=== PATIENT | female | born 1985 | race American Indian/Alaskan Native ===

== ENCOUNTER 2017-04-07 12:28 | Emergency (ER) | payer MEDICAID ==
[2017-04-07 12:58] VITALS: BP 133/77
[2017-04-07] MEDS ORDERED: ZOFRAN ODT PO ONE (13:02)
[2017-04-07] MEDS ORDERED: NORCO 10/325 PO ONE (13:03)
--- NOTE | 2017-04-07 13:04 | Emergency Department Report ---
Chief Complaint: Shoulder Injury Stated Complaint: BROKEN SHOULDER - HPI History of Present Illness: 31-year-old female presents with complaint of right shoulder elbow and upper arm pain status post mechanical fall. Patient in severe pain. Awake alert and oriented 3. - Exam Vital Signs: Vital Signs 04/07/17 12:51 Temperature 98.2 F Pulse Rate 57 L Blood Pressure 133/77 O2 Sat by Pulse 100 Oximetry Physical Exam: Patient has difficulty ranging right upper extremity secondary to pain status post fall MSE screening note: Focused history and physical exam performed. Due to findings the following was ordered: Screening Assessment/Plan/Differential Dx: Possible fracture or dislocation right upper extremity 1- This initial assessment/diagnostic orders/clinical plan/ treatment(s) is/are subject to change based on pt's health status, clinical progression and re- assessment by fellow clinical providers in the ED. Further treatment and workup at subsequent clinical provers discretion. Patient/guardians urged not to elope from ED as their condition may be serious if not clinically assessed and managed. 2-x-rays from elbow to shoulder 3-Roseline for pain ED Disposition for MSE Condition: Stable
[2017-04-07] MEDS ORDERED: DILAUDID IM ONE (13:58)
[2017-04-07] MEDS ORDERED: ZOFRAN IM ONE (13:58)
[2017-04-07] MEDS ORDERED: TORADOL IM ONE (14:00)
--- NOTE | 2017-04-07 14:11 | Emergency Department Report ---
HPI - General Chief Complaint: Shoulder Injury Time Seen by Provider: 04/07/17 13:50 - HPI HPI: Shayne Spence The patient is a 31-year-old female presenting with a chief complaint of left shoulder pain. The patient states she went out to look at the ice and accidentally slipped and fell backwards. The patient states she attempted to break her fall by reaching back with left arm but landed on her shoulder. Patient complains of pain in the left shoulder and gives it a score of_9-10/10. Patient denies loss of consciousness Location: Left shoulder Duration: Occurred today at approximately 11:00 Quality: Pain Severity: 9-10/10 Modifying factors: [see above] Context: [see above] Mode of transportation: [not driving] ED Past Medical Hx - Past Medical History Additional medical history: hypothyroidism. - Surgical History Past Surgical History?: No - Family History Family history: no significant - Social History Smoking Status: Never Smoker Substance Use Type: Alcohol (rarely) - Medications Home Medications: Home Medications Medication Instructions Recorded Confirmed Last Taken Type Cyclobenzaprine [Flexeril] 10 mg PO TID PRN #20 tablet 04/07/17 Unknown Rx Oxycodone HCl/Acetaminophen 1 each PO Q6HR PRN #30 tablet 04/07/17 Unknown Rx [Percocet 10/325 mg] ED Review of Systems ROS: Stated complaint: BROKEN SHOULDER Other details as noted in HPI Musculoskeletal: arthralgia, myalgia Physical Exam - Physical Exam Vital Signs: Vital Signs 04/07/17 12:51 Temperature 98.2 F Pulse Rate 57 L Blood Pressure 133/77 O2 Sat by Pulse 100 Oximetry Physical Exam: GENERAL: The patient is well-developed well-nourished female lying on stretcher supporting left upper extremity with her right hand. [] HEENT: Normocephalic. Atraumatic. Extraocular motions are intact. Patient has moist mucous membranes. NECK: Supple. Trachea midline CHEST/LUNGS: There is no respiratory distress noted. HEART/CARDIOVASCULAR: Regular. There is no tachycardia. 2+ left radial pulse SKIN: There is no diaphoresis. NEURO: The patient is awake, alert, and oriented. The patient is cooperative. The patient has normal speech MUSCULOSKELETAL: There is limited range of motion of the left shoulder secondary to pain ED Course Vital Signs 04/07/17 12:51 Temperature 98.2 F Pulse Rate 57 L Blood Pressure 133/77 O2 Sat by Pulse 100 Oximetry ED Medical Decision Making - Radiology Data Radiology results: image reviewed (left shoulder x-ray, left humerus x-ray, left elbow x-ray) Left shoulder x-ray-acute humeral neck fracture Left elbow x-ray-no fracture seen Left humerus x-ray-acute humeral neck fracture - Differential Diagnosis shoulder dislocation, humeral fracture Critical care attestation.: If time is entered above; I have spent that time in minutes in the direct care of this critically ill patient, excluding procedure time. ED Disposition Clinical Impression: Fracture of neck of left humerus Disposition: - TO HOME OR SELFCARE Is pt being admited?: No Does the pt Need Aspirin: No Condition: Stable Instructions: Arm Fracture in Adults (ED) Additional Instructions: Return to the emergency department immediately should you develop worsening symptoms, fever, inability to tolerate food or liquid or any other concerns. Prescriptions: Cyclobenzaprine [Flexeril] 10 mg PO TID PRN #20 tablet PRN Reason: Muscle Spasm Oxycodone HCl/Acetaminophen [Percocet 10/325 mg] 1 each PO Q6HR PRN #30 tablet PRN Reason: Pain Referrals: SÁNCHEZ DE JESUS MD [Staff Physician] - [facility] (Dr. De Jesus is an orthopedic surgeon. Please follow up with him for further evaluation) Time of Disposition: 14:21
--- NOTE | 2017-04-07 14:20 | XRay Report ---
LEFT SHOULDER RADIOGRAPHS INDICATION: Pain. COMPARISON: None similar at this institution. FINDINGS: Frontal and attempted Y views of the left shoulder somewhat limited due to patient positioning/extreme pain and demonstrate possibly comminuted humeral neck fracture without significant displacement, though slight inferior subluxation of the humeral head relative to the glenoid possible versus positional. Some overlying soft tissue swelling may also be present. Intact acromioclavicular joint. Normal imaged left lung and ribs. Some extrinsic artifacts. CONCLUSION: Left humeral neck acute fracture, suspected comminuted, as described. Thank you for the opportunity to participate in this patient's care.
--- NOTE | 2017-04-07 14:23 | XRay Report ---
LEFT HUMERUS RADIOGRAPHS INDICATION: Pain. COMPARISON: None similar. FINDINGS: Attempted AP and lateral views limited due to patient pain/discomfort, though just image a comminuted left humeral neck fracture with humeral head partly collimated. Few extrinsic artifacts. Elbow joint appears grossly intact. CONCLUSION: Left humeral neck acute comminuted fracture, as described. Thank you for the opportunity to participate in this patient's care.
--- NOTE | 2017-04-07 14:26 | XRay Report ---
LEFT ELBOW RADIOGRAPHS INDICATION: Fell, hit ground. Evaluate for fracture. COMPARISON: None similar. FINDINGS: AP and lateral views of the left elbow technically limited/suboptimally positioned. No gross abnormality though appreciated. CONCLUSION: No gross left elbow radiographic abnormality on this limited exam. Thank you for the opportunity to participate in this patient's care.
== END 2017-04-07 15:13 | disposition home or self-care (01) ==
LOC: ED 12:28
DX: S42.295A Other nondisplaced fracture of upper end of left humerus, initial encounter for closed fracture (principal); E03.9 Hypothyroidism, unspecified; W00.2XXA Other fall from one level to another due to ice and snow, initial encounter; Y93.89 Activity, other specified; Y92.89 Other specified places as the place of occurrence of the external cause; Y99.8 Other external cause status
CPT/HCPCS: 29105; 73030; 73060; 73080; 96372; 99283; J1170; J1885; J2405; Q0162

== ENCOUNTER 2017-04-13 08:33 | Outpatient (CLI) | payer MEDICAID ==
--- NOTE | 2017-04-13 09:43 | Cat Scan Report ---
CT UPPER EXTREMITY LEFT WITHOUT CONTRAST History: Pain in left shoulder. Technique: Helical CT with sagittal and coronal reformatted images. Findings: Compared to the left shoulder films dated 04/07/17. A mildly comminuted and displaced left humeral neck fracture is again identified. Anterior displacement of the distal fragment at the fracture site measures up to 1.7 cm. There is 30-40 degrees posterior angulation at the fracture site. No evidence for calcified callus. The humeral head remains adequately seated within the glenoid of the left scapula. No intra-articular fracture lines are identified. The scapula and left clavicle are intact. No joint pathology. There is diffuse soft tissue swelling. Impression: Comminuted, displaced left humeral neck fracture.
== END 2017-04-13 08:34 | disposition home or self-care (01) ==
LOC: CT 08:33
PROVIDERS: ATTEND Orthopaedic Surgery
DX: S42.292D Other displaced fracture of upper end of left humerus, subsequent encounter for fracture with routine healing (principal); X58.XXXD Exposure to other specified factors, subsequent encounter

== ENCOUNTER 2017-04-15 10:00 | Day surgery (SDC) | payer MEDICAID ==
[~2017-04-15 10:00] MED LIST: ANCEF/STERILE WATER 2 GM/20 ML IV NR
[2017-04-15] MEDS ORDERED: SUBLIMAZE IV NR (12:01)
[2017-04-15] MEDS ORDERED: ZOFRAN IV PRN (12:02)
[2017-04-15] MEDS ORDERED: DILAUDID IV PRN (12:02)
--- NOTE | 2017-04-15 12:04 | Anesthesia Day of Surgery ---
Anesthesia Day of Surgery - Day of Surgery Patient Examined: Yes Patient H&P Reviewed: Yes Patient is NPO: Yes
--- NOTE | 2017-04-15 12:05 | Anesthesia Consultation ---
Anesthesia Consult and Med Hx Date of service: 04/15/17 - Airway Anesthetic Teeth Evaluation: Good ROM Head & Neck: Adequate Mental/Hyoid Distance: Adequate Mallampati Class: Class II Intubation Access Assessment: Probably Good - Pulmonary Exam CTA: Yes - Cardiac Exam Cardiac Exam: RRR - Pre-Operative Health Status ASA Pre-Surgery Classification: ASA3 Proposed Anesthetic Plan: General Nerve Block: IS - Pulmonary Hx Smoking: No Hx Sleep Apnea: No (THERESE PRE SCREEN LOW RISK) - Cardiovascular System Hx Hypertension: No Hx Heart Murmur: Yes ( CHILD ONLY) - Central Nervous System Hx Psychiatric Problems: Yes (Anxiety, depression) - Endocrine Hx Thyroid Disease: Yes Hx Hypothyroidism: Yes (ON MEDS) - Other Systems Hx Substance Use: Yes (MARIJUANA MONTHLY) Hx Cancer: No - Additional Comments Anesthesia Medical History Comments: migraines, GERD
[2017-04-15] MEDS ORDERED: MARCAINE 0.5% 30 ML INFILTRATI ONE (12:06)
[2017-04-15] MEDS ORDERED: DIPRIVAN 10 MG/ML IV ONE (12:12)
[2017-04-15] MEDS ORDERED: XYLOCAINE MPF 2% ONE (12:12)
[2017-04-15] MEDS ORDERED: PEPCID IV NR (12:30)
[2017-04-15] MEDS ORDERED: VERSED IV NR (13:00)
[2017-04-15] MEDS ORDERED: LACTATED RINGERS 1,000 ML IV SCH (13:00)
[2017-04-15] MEDS ORDERED: DECADRON ONE (13:47)
[2017-04-15] MEDS ORDERED: NACL 0.9% IR ONE (14:10)
[2017-04-15] MEDS ORDERED: NACL 0.9% 1000 ML 1,000 ML ONE (14:57)
[2017-04-15] MEDS ORDERED: ZOFRAN ONE ×2 (15:11→15:49)
--- NOTE | 2017-04-15 15:41 | Procedure Note ---
Date of procedure: 04/15/17 Pre-op diagnosis: displaced left 2-part proximal humerus fracture Post-op diagnosis: same Procedure: Closed reduction and insertion of intramedullary nail left proximal humerus Procedure The patient was brought to or after being given a scalene nerve block in preop holding for postop pain management. She was placed on the OR table supine and was placed in the beachchair position. The left upper extremity was then prepped and draped in the usual sterile manner, a timeout procedure was done to identify the patient and the correct operative site. An incision was made over the greater tuberosity and was taken down sharply through skin and subcutaneous the deltoid was split along with the rotator cuff tendon A threaded guidewire was inserted through a proximal fragment across the fracture site into the distal humeral canal, The canal was reamed to a 11.5 mm diameter this was followed by insertion of the short humeral nail under C-arm fluoroscopy. Using the targeting device the proximal spiral blade was inserted into the humeral head and this was followed by gentle traction on the distal fragment along with insertion of 2 distal interlocking screws. Again AP and lateral views were obtained and showed good reduction of the fracture and placement of hardware. A third screw was inserted freehand through the distal fragment into the humeral head fragment again C-arm fluoroscopy was used to evaluate positioning. Following this the wound was copiously irrigated with saline solution followed by closure of the wound. Postop dressings were applied as well as an arm sling, she tolerated the procedure without complications and she was sent to postanesthesia recovery in stable condition Anesthesia: GETA Surgeon: SÁNCHEZ DE JESUS (Omari Ruff 1st assignment desk assistant) Estimated blood loss: 50-100ml Pathology: none Condition: stable Disposition: PACU
[2017-04-15] MEDS ORDERED: ZOFRAN IV ONE (15:50)
[2017-04-15 17:53] VITALS: BP 110/65
--- NOTE | 2017-04-15 22:35 | XRay Report ---
FINAL REPORT PROCEDURE: Left shoulder. TECHNIQUE: Portable two views. HISTORY: Proximal humerus fracture. COMPARISON: No prior studies are available for comparison. FINDINGS: Internal fixation hardware has been placed. The humeral neck fracture appears to be adequately reduced. The glenohumeral joint appears normal. IMPRESSION: Open reduction and internal fixation of the proximal humerus fracture.
== END 2017-04-15 10:01 | disposition home or self-care (01) ==
LOC: OR 10:00
PROVIDERS: ATTEND Orthopaedic Surgery
DX: S42.202A Unspecified fracture of upper end of left humerus, initial encounter for closed fracture (principal); K21.9 Gastro-esophageal reflux disease without esophagitis; E03.9 Hypothyroidism, unspecified; G43.909 Migraine, unspecified, not intractable, without status migrainosus; F41.9 Anxiety disorder, unspecified; F32.9 Major depressive disorder, single episode, unspecified; W01.0XXA Fall on same level from slipping, tripping and stumbling without subsequent striking against object, initial encounter; Y93.89 Activity, other specified; Y92.89 Other specified places as the place of occurrence of the external cause; Y99.8 Other external cause status
CPT/HCPCS: 23615; 73030; 81025; C1713; C1769; J0690; J1100; J2250; J2405; J2704; J3010; J7030; J7120

== ENCOUNTER 2017-09-21 10:48 | Outpatient (CLI) | payer MEDICAID ==
--- NOTE | 2017-09-21 11:29 | XRay Report ---
LEFT SHOULDER, 3 views: History: Pain in left shoulder. Compared to the operative films dated 04/15/17. Internal fixation of the left humeral neck is unchanged in position and alignment. The fracture is remodeling. There is a linear metallic density measuring 5.5 cm in the posterior soft tissues. This surgical pin has migrated since the operative films. Please correlate with the images. IMPRESSION: Remodeling left humeral neck fracture. There is a metallic pin in the posterior soft tissues which has migrated since the operative films dated 04/15/17.
== END 2017-09-21 10:49 | disposition home or self-care (01) ==
LOC: XRAY 10:48
PROVIDERS: ATTEND Orthopaedic Surgery
DX: M25.512 Pain in left shoulder (principal)

== ENCOUNTER 2017-10-14 11:26 | Day surgery (SDC) | payer MEDICAID ==
[2017-10-14 13:21] VITALS: BP 114/67
[2017-10-15] MEDS ORDERED: ANCEF/STERILE WATER 2 GM/20 ML IV NR (00:01)
[2017-10-15] MEDS ORDERED: XYLOCAINE MPF 2% ONE (14:14)
[2017-10-15] MEDS ORDERED: DIPRIVAN 10 MG/ML IV ONE (14:14)
[2017-10-15] MEDS ORDERED: ROBINUL ONE (14:38)
[2017-10-15] MEDS ORDERED: DILAUDID ONE (14:43)
[2017-10-15] MEDS ORDERED: ZOFRAN ONE (16:12)
[2017-10-15] MEDS ORDERED: NACL 0.9% 1000 ML 1,000 ML ONE (16:16)
== END 2017-10-14 11:27 | disposition home or self-care (01) ==
LOC: OR 11:26
PROVIDERS: ATTEND Orthopaedic Surgery
DX: M25.512 Pain in left shoulder (principal); E03.9 Hypothyroidism, unspecified; F32.9 Major depressive disorder, single episode, unspecified; F41.9 Anxiety disorder, unspecified; M19.90 Unspecified osteoarthritis, unspecified site; Z98.890 Other specified postprocedural states; Z53.8 Procedure and treatment not carried out for other reasons
CPT/HCPCS: 81025; J1170; J2405; J2704; J7030

== ENCOUNTER 2017-10-15 10:12 | Day surgery (SDC) | payer MEDICAID ==
[2017-10-15] MEDS ORDERED: NACL BACTERIOSTATIC INFILTRATI ONE (10:55)
[2017-10-15] MEDS ORDERED: VERSED IV NR (11:00)
[2017-10-15] MEDS ORDERED: ANCEF/STERILE WATER 2 GM/20 ML IV NR (11:00)
[2017-10-15] MEDS ORDERED: LACTATED RINGERS 1,000 ML IV SCH (11:00)
--- NOTE | 2017-10-15 11:07 | Anesthesia Day of Surgery ---
Anesthesia Day of Surgery - Day of Surgery Patient Examined: Yes Patient H&P Reviewed: Yes Patient is NPO: Yes
[2017-10-15] MEDS ORDERED: ZOFRAN IV PRN (11:08)
[2017-10-15] MEDS ORDERED: DEMEROL IV PRN (11:08)
[2017-10-15] MEDS ORDERED: DILAUDID IV PRN (11:08)
[2017-10-15] MEDS ORDERED: TORADOL IV PRN (11:08)
--- NOTE | 2017-10-15 11:08 | Anesthesia Consultation ---
Anesthesia Consult and Med Hx Date of service: 10/15/17 - Airway Anesthetic Teeth Evaluation: Good ROM Head & Neck: Adequate Mental/Hyoid Distance: Adequate Mallampati Class: Class II Intubation Access Assessment: Probably Good - Pulmonary Exam CTA: Yes - Cardiac Exam Cardiac Exam: RRR - Pre-Operative Health Status ASA Pre-Surgery Classification: ASA3 Proposed Anesthetic Plan: General Nerve Block: IS (Ga with LMA ok) - Pulmonary Hx Smoking: No Hx Sleep Apnea: No (THERESE PRE SCREEN LOW RISK) - Cardiovascular System Hx Hypertension: No Hx Heart Murmur: Yes ( CHILD ONLY) - Endocrine Hx Thyroid Disease: Yes Hx Hypothyroidism: Yes (ON MEDS) - Other Systems Hx Substance Use: Yes (MARIJUANA MONTHLY) Hx Cancer: No
[2017-10-15] MEDS ORDERED: MARCAINE 0.5% INFILTRATI ONE ×2 (14:51→15:09)
[2017-10-15] MEDS ORDERED: MORPHINE ONE (14:53)
[2017-10-15] MEDS ORDERED: NACL 0.9% 100 ML ONE (14:54)
[2017-10-15] MEDS ORDERED: NACL 0.9% IR ONE (15:08)
[2017-10-15] MEDS ORDERED: TORADOL IV ONE (15:09)
[2017-10-15] MEDS ORDERED: MORPHINE IM ONE (15:10)
[2017-10-15] MEDS ORDERED: NACL 0.9% IV ONE (15:10)
[2017-10-15] MEDS: DILAUDID IV PRN ×4 (17:10→17:40)
--- NOTE | 2017-10-15 17:14 | Procedure Note ---
Date of procedure: 10/15/17 Pre-op diagnosis: hardware irritation left shoulder Post-op diagnosis: same Procedure: Removal of hardware left shoulder status post intramedullary nail left proximal humerus Procedure The patient was brought to the OR placed in the or table in supine position following induction and intubation by anesthesia the patient was placed in the beachchair position The left shoulder and arm were prepped and draped in the usual sterile manner. A timeout procedure was done to identify the patient and the correct operative site. Using the previous incision over the lateral border of the shoulder incision was taken down sharply through skin and subcutaneous C-arm was brought in the proximal aspect of the intramedullary nail was visualized next the inset incision was carried deep through the rotator cuff tendon with exposure of the proximal aspect of the IM nail the intramedullary cap screw exposing the internal portion of IM nail following this extraction device was then applied following this the helical blade was localized via C-arm and using a small K wire placed through the helical blade this this structure was removed as well attention was then turned to the 2 distal locking screws and using the previous incision and C-arm visualization the 2 distal screws were removed The intramedullary nail was extracted without any complications. Finally the K wire seen in the patient's soft tissue was removed using a secondary incision distally The wounds were all copiously irrigated, closed in a standard routine fashion routine prep and routine dressings were used the patient was then extubated and was taken to postanesthesia recovery in a stable condition. Anesthesia: GETA Surgeon: SÁNCHEZ DE JESUS Estimated blood loss: 50-100ml Pathology: none Condition: stable Disposition: PACU
[2017-10-15] MEDS ORDERED: NORCO 7.5/325 PO PRN (17:49)
[2017-10-15 18:53] VITALS: BP 110/62
--- NOTE | 2017-10-18 07:24 | XRay Report ---
LEFT SHOULDER, ONE VIEW History: Painful hardware removal. Findings: 2 fluoroscopic images of the left shoulder region and proximal left humerus were saved during surgery by Dr. Adam. The images demonstrate removal of an intramedullary pk and 3 screws from the proximal left humerus since 09/21/17. A linear metallic object in the posterior soft tissues has also been removed. A single orthopedic screw transverses the left humeral neck region. Please correlate with the procedural report as needed. Impression: Hardware removal from the proximal left humerus as outlined above.
== END 2017-10-15 19:30 | disposition home or self-care (01) ==
LOC: OR 10:12
PROVIDERS: ATTEND Orthopaedic Surgery
DX: T84.84XA Pain due to internal orthopedic prosthetic devices, implants and grafts, initial encounter (principal); E03.9 Hypothyroidism, unspecified; F32.9 Major depressive disorder, single episode, unspecified; F41.9 Anxiety disorder, unspecified; E66.9 Obesity, unspecified; Z68.36 Body mass index [BMI] 36.0-36.9, adult; Y83.1 Surgical operation with implant of artificial internal device as the cause of abnormal reaction of the patient, or of later complication, without mention of misadventure at the time of the procedure
CPT/HCPCS: 20670; 73020; J0690; J1170; J1885; J2270; J2405; J7120

== ENCOUNTER 2018-08-23 12:37 | Outpatient (CLI) | payer MEDICAID ==
--- NOTE | 2018-08-23 14:03 | XRay Report ---
LEFT ANKLE, 3 views: History: left ankle pain. No comparison. There is borderline bone mineralization. There appears to be a remodeling fracture in the distal left fibula 3-4 cm proximal to the ankle joint. No acute fracture is appreciated. There are moderate degenerative changes at the ankle joint. No osteochondral defect. Moderate plantar spur. Mild diffuse soft tissue swelling. IMPRESSION: Remodeling distal fibular fracture. Osteoarthritis. Plantar spur.
== END 2018-08-23 12:38 | disposition home or self-care (01) ==
LOC: XRAY 12:37
PROVIDERS: ATTEND Orthopaedic Surgery
DX: S82.402A Unspecified fracture of shaft of left fibula, initial encounter for closed fracture (principal); M19.072 Primary osteoarthritis, left ankle and foot; E03.9 Hypothyroidism, unspecified; X58.XXXA Exposure to other specified factors, initial encounter; Y93.89 Activity, other specified; Y92.89 Other specified places as the place of occurrence of the external cause; Y99.8 Other external cause status

== ENCOUNTER 2018-11-20 14:30 | Emergency (ER) | payer MEDICAID ==
--- NOTE | 2018-11-20 16:27 | XRay Report ---
RIGHT ANKLE 3 VIEWS INDICATION / CLINICAL INFORMATION: pain and swelling r/t injury. COMPARISON: None available. FINDINGS: No significant skeletal abnormality. Signer Name: Buck Roper MD FACWillem Signed: 11/20/2018 4:23 PM Workstation Name: [id number]
--- NOTE | 2018-11-20 18:08 | Emergency Department Report ---
ED Lower Extremity HPI - General Chief Complaint: Extremity Injury, Lower Stated Complaint: RT ANKLE INJURY Time Seen by Provider: 11/20/18 18:04 Source: patient, family Mode of arrival: Wheelchair Limitations: No Limitations - History of Present Illness Initial Comments: 32-year-old -[place] female presents to the emergency room for right ankle pain after twisting her ankle approximately 1:15 today. Patient reports she was carrying a box when she stepped down and eating with her right foot she rolled inward with her foot and heard some sounds. Patient did take ibuprofen 800 mg about 2 PM. He says states her pain is still a 9 out of 10. He has a past medical history of hypothyroidism and is currently taking levothyroxine 175 g. Patient has an allergy to corn. MD Complaint: ankle injury -: This afternoon Time: 13:15 Injury: Ankle: Right (twisted ) Type of Injury: inversion Place: home Severity scale (0 -10): 9 Improves With: immobilization Worsens With: weight bearing, palpation Context: walking Associated Symptoms: snap/pop sensation, swelling, numbness, tingling, unable to bear weight Treatments Prior to Arrival: NSAIDS - Related Data Home Medications Medication Instructions Recorded Confirmed Last Taken Citalopram [celeXA] 10 mg PO QDAY 04/14/17 10/15/17 10/15/17 08:30 Levothyroxine (Nf) [Synthroid] 200 mcg PO QAM 04/14/17 10/15/17 10/15/17 08:30 Acetaminophen [Non-Aspirin Extra 1,000 mg PO QDAY PRN 10/15/17 10/15/17 10/11/17 Strength] Previous Rx's Medication Instructions Recorded Last Taken Type HYDROcodone/APAP 7.5-325 [Dewey 1 each PO Q6HR PRN #35 tablet 10/15/17 Unknown Rx 7.5-325 mg TAB] Ibuprofen [Motrin 800 MG tab] 800 mg PO Q8HR PRN #30 tablet 11/20/18 Unknown Rx Allergies Allergy/AdvReac Type Severity Reaction Status Date / Time corn AdvReac Itching Verified 10/12/17 09:32 THROAT,COUGH ED Review of Systems ROS: Stated complaint: RT ANKLE INJURY Other details as noted in HPI ED Past Medical Hx - Past Medical History Hx Hypertension: No Hx Arthritis: Yes Hx Headaches / Migraines: Yes (MIGRAINES) Hx HIV: No Additional medical history: hypothyroidism. - Surgical History Past Surgical History?: Yes Additional Surgical History: left rotator cuff x2, left foot/ankle fx - Social History Smoking Status: Current Every Day Smoker Substance Use Type: Alcohol - Medications Home Medications: Home Medications Medication Instructions Recorded Confirmed Last Taken Type Citalopram [celeXA] 10 mg PO QDAY 04/14/17 10/15/17 10/15/17 08:30 History Levothyroxine (Nf) [Synthroid] 200 mcg PO QAM 04/14/17 10/15/17 10/15/17 08:30 History Acetaminophen [Non-Aspirin Extra 1,000 mg PO QDAY PRN 10/15/17 10/15/17 10/11/17 History Strength] HYDROcodone/APAP 7.5-325 [Dewey 1 each PO Q6HR PRN #35 tablet 10/15/17 Unknown Rx 7.5-325 mg TAB] Ibuprofen [Motrin 800 MG tab] 800 mg PO Q8HR PRN #30 tablet 11/20/18 Unknown Rx ED Physical Exam - General Limitations: No Limitations General appearance: alert, in no apparent distress - Head Head exam: Present: atraumatic, normocephalic - Eye Eye exam: Present: normal appearance - ENT ENT exam: Present: mucous membranes moist - Neck Neck exam: Present: normal inspection, full ROM - Expanded Lower Extremity Exam Right Ankle exam: Present: full ROM, tenderness, swelling, ecchymosis Foot/Toe exam: Present: full ROM Neuro vascular tendon exam: Present: no vascular compromise - Back Exam Back exam: Present: normal inspection - Neurological Exam Neurological exam: Present: alert, oriented X3 - Psychiatric Psychiatric exam: Present: normal affect, normal mood - Skin Skin exam: Present: warm, dry, intact, normal color. Absent: rash ED Course Vital Signs 11/20/18 15:23 Temperature 98.2 F Pulse Rate 78 Respiratory 18 Rate Blood Pressure 114/76 O2 Sat by Pulse 100 Oximetry ED Lower Extremity MDM - Radiology Data Radiology results: report reviewed Patient: DEBORAH WILKINS MR #: [id number] : 1985 Acct:[id number] Age/Sex: 32 / F ADM Date: 11/20/18 Loc: ED Attending Dr: Ordering Physician: ED DOC, Date of Service: 11/20/18 Procedure(s): XR ankle 3+V RT Accession Number(s): [id number] cc: ED MD ALFREDO Fluoro Time In Minutes: RIGHT ANKLE 3 VIEWS INDICATION / CLINICAL INFORMATION: pain and swelling r/t injury. COMPARISON: None available. FINDINGS: No significant skeletal abnormality. Signer Name: Buck Roper MD FACR Signed: 11/20/2018 4:23 PM Workstation Name: [id number] Transcribed By: MS Dictated By: Buck Roper MD Electronically Authenticated By: Buck Roper MD Signed Date/Time: 11/20/181622 DD/ 21 TD/TT: - Medical Decision Making 32-year-old -[place] female presents to the emergency room for right ankle pain after twisting her ankle approximately 1:15 today. Patient reports she was carrying a box when she stepped down and eating with her right foot she rolled inward with her foot and heard some sounds. Patient did take ibuprofen 800 mg about 2 PM. He says states her pain is still a 9 out of 10. He has a past medical history of hypothyroidism and is currently taking levothyroxine 175 g. Patient has an allergy to corn. X-ray of right ankle shows no acute fractures. I discussed the patient she appears to have a moderate right ankle sprain will place Darien bandage and crutches patient is to follow-up with orthopedic provider in the next 2-3 days. Should continue with ibuprofen as needed for pain management. Critical care attestation.: If time is entered above; I have spent that time in minutes in the direct care of this critically ill patient, excluding procedure time. ED Disposition Clinical Impression: Moderate ankle sprain Disposition: DC-01 TO HOME OR SELFCARE Is pt being admited?: No Does the pt Need Aspirin: No Condition: Stable Instructions: Ankle Sprain (ED) Additional Instructions: Please wear Darien bandage take ibuprofen as needed for pain use her crutches to help ambulate. Continue with ice therapy and follow up with orthopedic provider. Prescriptions: Ibuprofen [Motrin 800 MG tab] 800 mg PO Q8HR PRN #30 tablet PRN Reason: Pain , Severe (7-10) Referrals: SÁNCHEZ DE JESUS MD [Staff Physician] - 3-5 Days Forms: Work/School Release Form(ED)
[2018-11-20] MEDS ORDERED: NORCO 5/325 PO ONE (18:12)
[2018-11-20 20:26] VITALS: BP 122/78
== END 2018-11-20 19:25 | disposition home or self-care (01) ==
LOC: ED 14:30
DX: S93.401A Sprain of unspecified ligament of right ankle, initial encounter (principal); E03.9 Hypothyroidism, unspecified; M19.90 Unspecified osteoarthritis, unspecified site; G43.909 Migraine, unspecified, not intractable, without status migrainosus; F17.200 Nicotine dependence, unspecified, uncomplicated; Z91.018 Allergy to other foods; Z79.899 Other long term (current) drug therapy; Z79.1 Long term (current) use of non-steroidal anti-inflammatories (NSAID); W10.8XXA Fall (on) (from) other stairs and steps, initial encounter; Y93.89 Activity, other specified; Y92.098 Other place in other non-institutional residence as the place of occurrence of the external cause; Y99.8 Other external cause status
CPT/HCPCS: 99284